=== PATIENT | male | born 2000 | race Caucasian/White ===

== ENCOUNTER → 2024-09-08 | Outpatient (CLI) | payer OTHER ==
[~2024-09-08] MED LIST: LIDOCAINE 1% MDV 20ML VIAL As Ordered ONE
[2024-09-08 10:03] VITALS: BP 136/72; TEMP 98.2; O2SAT 99
== END ==
LOC: M IRPRO 09:53
PROVIDERS: ATTEND Otolaryngology
DX: E04.1 Nontoxic single thyroid nodule (principal)